=== PATIENT | male | born 2005 | race African-American/Black ===

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

== ENCOUNTER 2023-09-27 18:35 | Inpatient (IN) | payer MEDICAID ==
[~2023-09-27] VITALS: Ht 182.9 cm; Wt 68.5 kg
[2023-09-27] MEDS ORDERED: LORazepam 2 MG TABLET PO PRN (19:30)
[2023-09-27] MEDS ORDERED: ZOLPIDEM TARTRATE 10 MG TABLET PO PRN (19:30)
[2023-09-27] MEDS ORDERED: HALOPERIDOL 5 MG TABLET PO PRN (19:30)
[2023-09-27 20:01] LABS: GLUCOMETER DEV NAME(LOC) POC.BV; POC SARS-COV2 AG, FIA NEGATIVE (NEGATIVE)
[2023-09-27] MEDS ORDERED: INFLUENZA VIRUS VACCINE QVS 2023-24 (6MO+)/PF 60 MCG/0.5 ML SYRINGE IM. ONE (20:30)
[2023-09-27 21:13] VITALS: BP 135/79; PULSE 73; RESP 18; TEMP 97.8; O2SAT 96
[2023-09-27] MEDS ORDERED: BACITRACIN 28 GM OINTMENT TP PRN (21:45)
[2023-09-27] MEDS ORDERED: LOPERAMIDE HCL 2 MG CAPSULE PO PRN (21:45)
[2023-09-27] MEDS ORDERED: ALBUTEROL SULFATE HFA 90 MCG/PUFF 8 GM INHALER IH PRN (21:45)
[2023-09-27] MEDS ORDERED: IBUPROFEN 600 MG TABLET PO PRN (21:45)
[2023-09-27] MEDS ORDERED: DOCUSATE SODIUM 100 MG CAPSULE PO PRN (21:45)
[2023-09-27] MEDS ORDERED: MAGNESIUM HYDROXIDE SUSPENSION 30 ML UDCUP PO PRN (21:45)
[2023-09-27] MEDS ORDERED: ONDANSETRON HCL 4 MG TABLET PO PRN (21:45)
[2023-09-27] MEDS ORDERED: CloNIDine HCL 0.1 MG TABLET PO PRN (21:45)
[2023-09-27] MEDS ORDERED: PETROLATUM,WHITE 28 GM JELLY TP PRN (21:45)
[2023-09-27] MEDS ORDERED: MAG HYDROX/ALUMINUM HYD/SIMETH ES 30 ML SUSPENSION UDCUP PO PRN (21:45)
[2023-09-27] MEDS ORDERED: OMEPRAZOLE 20 MG CAPSULE PO PRN (21:45)
[2023-09-27] MEDS ORDERED: ACETAMINOPHEN 325 MG TABLET PO PRN (21:45)
[2023-09-27] MEDS ORDERED: BENZOCAINE/MENTHOL LOZENGE PO PRN (21:45)
[2023-09-28 08:24] VITALS: BP 121/80; PULSE 78; RESP 17; TEMP 98; O2SAT 98
[2023-09-28 08:44] LABS: BASOPHILS % (AUTO) 0.2 % (0.0-2.0); EOSINOPHILS % (AUTO) 0.2 % (1.0-6.0); HEMATOCRIT 42.9 % (41-53); HEMOGLOBIN 14.5 g/dL (13.5-17.5); LYMPHOCYTES # (AUTO) 1.7 K/uL (1.0-4.8); LYMPHOCYTES % (AUTO) 34.4 % (22.0-44.0); MEAN CORPUSCULAR HEMOGLOBIN 31.3 pg (26.0-34.0); MEAN CORPUSCULAR HGB CONC 33.9 G/dL (31.0-37.0); MEAN CORPUSCULAR VOLUME 92 fL (80-100); MONOCYTES # (AUTO) 0.5 K/uL (0.1-1.0); NEUTROPHILS # (AUTO) 2.8 K/uL (1.8-7.7); NEUTROPHILS % (AUTO) 56.2 % (40.0-70.0); PLATELET COUNT (AUTO) 255 K/uL (150-450); RED BLOOD CELL COUNT(AUTO) 4.65 MIL/uL (4.50-5.90); RED CELL DISTRIBUTION WIDTH 13.4 % (11.5-14.5); WHITE BLOOD COUNT (AUTO) 5.1 K/uL (4.5-11.0)
[2023-09-28 09:02] LABS: HEMOGLOBIN A1C 5.3 % (3.8-5.6)
[2023-09-28 09:18] LABS: ALANINE AMINOTRANSFERASE 16 U/L (12-78); ALBUMIN 4.2 g/dL (3.4-5.0); ALKALINE PHOSPHATASE 65 U/L (46-116); ANION GAP 8 mmol/L (8-16); ASPARTATE AMINOTRANSFERASE 20 U/L (15-37); BILIRUBIN,TOTAL 0.5 mg/dL (0.1-1.0); CALCIUM, TOTAL 9.7 mg/dL (8.8-10.5); CARBON DIOXIDE 31 mmol/L (22-29); CHLORIDE 103 mmol/L (98-107); CHOL/HDL RATIO 2.8 (4.2-7.3); CHOLESTEROL 135 mg/dL (131-200); CREATININE 0.92 mg/dL (0.60-1.30); GLOMERULAR FILTR. RATE CALC > 60 mL/min (>60); GLUCOSE,RANDOM 102 mg/dL (70-110); HDL CHOLESTEROL 49 mg/dL (40-60); LDL CHOL (CALC.) 77 mg/dL (0-130); POTASSIUM 4.3 mmol/L (3.5-5.1); SODIUM SERUM 142 mmol/L (136-145); TOTAL PROTEIN, SERUM 8.7 g/dL (6.4-8.2); TRIGLYCERIDES 47 mg/dL (15-150); UREA NITROGEN, BLOOD 11 mg/dL (7-18)
[2023-09-28 09:50] LABS: FREE T4 (FREE THYROXINE) 1.02 ng/dL (0.76-1.46); THYROID STIMULATING HORMONE 0.37 uIU/mL (0.36-3.74)
== END 2023-09-28 18:00 | disposition home or self-care (01) | DRG 754 ==
LOC: B3A 20:01
PROVIDERS: ADMIT Psychiatry & Neurology Psychiatry; ATTEND Psychiatry & Neurology Psychiatry
DX: F32.9 Major depressive disorder, single episode, unspecified (principal); F20.9 Schizophrenia, unspecified; F41.9 Anxiety disorder, unspecified; G47.00 Insomnia, unspecified; Z20.822 Contact with and (suspected) exposure to COVID-19; K59.00 Constipation, unspecified; Z91.018 Allergy to other foods
CPT/HCPCS: 80053; 80061; 83036; 84439; 84443; 85025; 36415-L1; 36415-TC; Z7610